=== PATIENT | female | born 1970 | race Caucasian/White ===

== ENCOUNTER 2025-05-25 16:09 | Inpatient (IN) | payer OTHER ==
[2025-05-25] MEDS ORDERED: METHYLPREDNISOLONE 125 MG INJ ONE (16:13)
[2025-05-25] MEDS ORDERED: ALBUTEROL 2.5 MG/3 ML NEB SOL ONE (16:13)
[2025-05-25] MEDS ORDERED: IPRATROPIUM BROM 0.5MG/2.5ML ONE (16:13)
[2025-05-25 16:35] LABS: Absolute Lymphocytes (CBC) 3.1 K/uL (0.7-4.9); Hematocrit 43.6 % (36.0-45.0); Hemoglobin 14.3 g/dL (12.0-15.0); MCH 30.1 pg (27.0-35.0); MCHC 32.9 g/dL (32.0-36.0); MCV 91.6 fL (80-100); MPV 7.8 fL (7.6-11.3); Nucleated RBC Absolute Count 0.0 (0-0); Nucleated Red Blood Cells % 0.1 % (0-0); RBC Red Blood Cell Count 4.76 M/uL (3.86-4.86); White Blood Count 14.00 thou/uL (4.3-10.9)
[2025-05-25 16:45] LABS: PT Prothrombin Time 13.1 SECONDS (10-13.0); PTT, Activated Partial Thromb 35.1 SECONDS (27.2-37.4); Protime INR 1.16
[2025-05-25 16:50] LABS: Influenza A Ag Negative; Influenza B Ag Negative; SARS-CoV-2 Antigen Rapid Res Negative (Negative)
[2025-05-25 17:13] LABS: ALT/SGPT 23.0 U/L (13-56); AST/SGOT 20.0 U/L (15-37); Albumin 3.7 g/dL (3.4-5.0); Albumin/Globulin Ratio 0.8 (1.1-1.8); Alkaline Phosphatase 105.0 U/L (45-117); Anion Gap 11.6 mEq/L (5.0-15.0); BUN Blood Urea Nitrogen 13.0 mg/dL (7-18); Globulin 4.7 g/dL (2.3-3.5); Glucose Level 138.0 mg/dL (74-106); NT PRO-BNP 42.0 pg/mL (<125); Potassium 3.6 mEq/L (3.5-5.1); Troponin High Sensitivity 26.2 pg/mL (<58.9)
[2025-05-25] MEDS ORDERED: Magnesium Sulfate 2gm IVPB 2 G/50 ML BAG IV ONE (17:24)
[2025-05-25] MEDS ORDERED: LEVALBUTEROL 1.25 MG/3 ML NEB ONE (17:24)
--- NOTE | 2025-05-25 18:06 | RAD REPORT ---
EXAMINATION: TWO VIEW CHEST XR CLINICAL INDICATION: Female, 55 years old. [facility] MAIN DYSPNEA Bed: TECHNIQUE: 2 view radiographs of the chest were performed. COMPARISON: No prior exam. FINDINGS: The lungs are well inflated and clear. Superimposition of soft tissues along the lower chest. No pneu mothorax or sizable effusion. The heart is normal in size. Mediastinal contours are unremarkable. IMPRESSION: No acute or significant abnormalities.
--- NOTE | 2025-05-25 18:15 | ER ---
Nurse's Notes [facility] Name: Alayna Cartwright Age: 55 yrs Sex: Female : 1970 Arrival Date: 05/25/2025 Time: 16:09 Bed 15 Private MD: Diagnosis: Unspecified asthma with (acute) exacerbation;Hypoxemia Presentation: 05/25 16:14 Chief complaint: Patient states: SOB X 2 weeks , has been on doxycycline for sinus iw infection, hx of asthma. Coronavirus screen: Client presents with at least one sign or symptom that may indicate coronavirus-19. Risk Assessment: Do you want to hurt yourself or someone else? Patient reports no desire to harm self or others. 16:14 Method Of Arrival: Ambulatory iw 16:14 Acuity: BRAD 2 iw 16:14 Ebola Screen: No symptoms or risks identified at this time. Initial Sepsis Screen: Does iw the patient meet any 2 criteria? RR > 20 per min. HR > 90 bpm. Does the patient have a suspected source of infection?. Onset of symptoms was May 11, 2025. Historical: - Allergies: 16:19 Aspirin; iw - PMHx: 16:19 Diabetes mellitus; Asthma; Anxiety; Depressive disorder; Bipolar disorder; iw - Immunization history:: Adult Immunizations not up to date. - Infectious Disease History:: Denies. - Social history:: Smoking status: Patient reports the use of cigarette tobacco products, denies chronic smoking, but will smoke occasionally. Screenin:31 [facility] ED Fall Risk Assessment (Adult) History of falling in the last 3 months, af3 including since admission No falls in past 3 months (0 pts) Confusion or Disorientation No (0 pts) Intoxicated or Sedated No (0 pts) Impaired Gait No (0 pts) Mobility Assist Device Used No (0 pt) Altered Elimination No (0 pt) Score/Fall Risk Level 0 - 2 = Low Risk Oriented to surroundings, Maintained a safe environment, Educated pt \T\ family on fall prevention, incl call for assistance when getting out of bed. Abuse screen: Denies threats or abuse. Denies injuries from another. Nutritional screening: No deficits noted. Tuberculosis screening: No symptoms or risk factors identified. Assessment: 16:31 General: Appears distressed, uncomfortable, well groomed, well developed, Behavior is af3 cooperative, appropriate for age. Pain: Complains of pain in chest. Neuro: Level of Consciousness is awake, alert, obeys commands, Oriented to person, place, time, situation, Appropriate for age. Cardiovascular: Patient's skin is warm and dry. Rhythm is sinus rhythm. Respiratory: Airway is patent Respiratory effort is labored, Respiratory pattern is regular, tachypnea. 17:19 Reassessment: Patient appears in no apparent distress at this time. Patient and/or af3 family updated on plan of care and expected duration. Pain level reassessed. 18:00 General: Appears in no apparent distress. Behavior is calm, cooperative, appropriate rg5 for age. Respiratory: Respiratory: Airway is patent Respiratory effort is even, Breath sounds with crackles bilaterally. 18:15 Reassessment: No changes from previously documented assessment. Patient and/or family rg5 updated on plan of care and expected duration. Pain level reassessed. Patient is alert, oriented x 3, equal unlabored respirations, skin warm/dry/pink. 19:10 Reassessment: Patient and/or family updated on plan of care and expected duration. Pain rg5 level reassessed. Patient is alert, oriented x 3, equal unlabored respirations, skin warm/dry/pink. 20:04 Reassessment: No changes from previously documented assessment. Patient and/or family rg5 updated on plan of care and expected duration. Pain level reassessed. Patient is alert, oriented x 3, equal unlabored respirations, skin warm/dry/pink. Vital Signs: 16:14 BP 136 / 72; Pulse 95; Resp 20; Temp 97; Pulse Ox 85% on R/A; Weight 82.1 kg; Height 5 iw ft. 2 in. ; 17:19 BP 131 / 65; Pulse 98; Resp 24; Pulse Ox 92% on 4 lpm NC; af3 18:35 BP 149 / 114; Pulse 91; Resp 19; Pulse Ox 94% on 3 lpm NC; rg5 19:00 BP 139 / 82; Pulse 104; Resp 19; Pulse Ox 94% on 3 lpm NC; rg5 20:03 BP 137 / 67; Pulse 111; Resp 20; Pulse Ox 95% on 3 lpm NC; Pain 0/10; rg5 21:08 BP 110 / 53; Pulse 92; Resp 18; Pulse Ox 95% ; rg5 16:14 Body Mass Index 33.10 (82.10 kg, 157.48 cm) iw 20:03 Pain Scale: Adult rg5 ED Course: 16:11 Patient arrived in ED. im 16:11 Deneen Gregorio PA-C is PHCP. sb4 16:11 Manuel James DO is Attending Physician. sb4 16:15 Triage completed. iw 16:20 Arm band placed on. iw 16:28 Candelaria Flores, RN is Primary Nurse. af3 16:29 COVID-19 Ag + Flu A+B Ag Sent. af3 16:30 Client placed on continuous cardiac and pulse oximetry monitoring. NIBP monitoring ap3 applied. residential monitor on. Pulse ox on. NIBP on. 16:30 EKG done, by ED staff, reviewed by Deneen Gregorio PA-C. ap3 17:08 Chest Pa And Lat (2 Views) XRAY In Process Unspecified. EDMS 18:00 Patient has correct armband on for positive identification. Bed in low position. Call rg5 light in reach. Side rails up X 1. Door closed. Noise minimized. Warm blanket given. 18:15 Javier Srinivasan, ELANA is Hospitalizing Provider. sb4 20:04 No provider procedures requiring assistance completed. Patient admitted, IV remains in rg5 place. intact, No redness/swelling at site. Administered Medications: 16:27 Drug: DuoNeb Nebulize (3:1) (2.5 mg - 0.5 mg) 3 ml Nebulizer once Route: Nebulizer; iw 17:33 Follow up: Response: No adverse reaction af3 16:27 Drug: MethylPrednisoLONE IVP 125 mg IVP once Route: IVP; Site: right antecubital; iw 17:33 Follow up: Response: No adverse reaction af3 17:33 Drug: Magnesium Sulfate IVPB 2 grams IVPB once over 20 mins Route: IVPB; Infused Over: af3 20 mins; Site: right antecubital; 18:39 Follow up: IV Status: Completed infusion; IV Intake: 100ml rg5 17:33 Drug: Levalbuterol Inhalation 1.25 mg Inhalation once Route: Inhalation; af3 18:39 Drug: Acetaminophen PO 650 mg PO once Route: PO; rg5 19:12 Follow up: Response: No adverse reaction; Pain is decreased rg5 Medication: 16:31 VIS not applicable for this client. af3 Intake: 18:39 IV: 100ml; Total: 100ml. rg5 Outcome: 18:15 Decision to Hospitalize by Provider. sb4 20:06 Admitted to ER Hold. Please see [facility] for further documentation. rg5 20:06 Condition: stable rg5 20:06 Instructed on the need for admit, 22:11 Patient left the ED. rg5 Signatures: Dispatcher [employer] EDMS Narda Castillo, ELANA RN iw Jenniffer Márquez RN RN ny3 Deneen Gregorio, PA-C PA-C sb4 Dona Fonseca Rommel, RN RN rg5 Candelaria Flores RN RN af3 Corrections: (The following items were deleted from the chart) 16:19 16:14 BP 136 / 72; Pulse 95bpm; Resp 20bpm; Pulse Ox 85% RA; iw iw
--- NOTE | 2025-05-25 18:15 | EDPHYS ---
Physician Documentation [facility] Name: Alayna Cartwright Age: 55 yrs Sex: Female : 1970 Arrival Date: 05/25/2025 Time: 16:09 Bed 15 Private MD: ED Physician Manuel James HPI: 05/25 16:19 This 55 yrs old Female presents to ER via Ambulatory with complaints of Shortness Of sb4 Breath, Asthma Exacerbation. 16:19 Patient reports cough and congestion for about 2 weeks now. She states she is becoming sb4 increasingly more short of breath. She was seen by prescribed doxycycline about 4 days ago but it is not helping. She was not prescribed any steroids or inhalers. Does report a history of asthma. Historical: - Allergies: 16:19 Aspirin; iw - PMHx: 16:19 Diabetes mellitus; Asthma; Anxiety; Depressive disorder; Bipolar disorder; iw - Immunization history:: Adult Immunizations not up to date. - Infectious Disease History:: Denies. - Social history:: Smoking status: Patient reports the use of cigarette tobacco products, denies chronic smoking, but will smoke occasionally. ROS: 16:19 Constitutional: Negative for fever, chills, and weight loss, sb4 16:19 Respiratory: Positive for cough, shortness of breath, 16:19 All other systems are negative, Exam: 16:19 Head/Face: Normocephalic, atraumatic. Eyes: Extra-ocular motions intact. Periorbital sb4 areas with no swelling, redness, or edema. ENT: Mucous membranes moist. Cardiovascular: Regular rate and rhythm with a normal S1 and S2. Abdomen/GI: Soft, non-tender, no distension. Skin: Warm, dry with normal turgor. Normal color with no rashes, no lesions, and no evidence of cellulitis. 16:19 Constitutional: The patient appears alert, awake, in obvious distress, uncomfortable, 16:19 Respiratory: mild respiratory distress is noted, Respirations: labored breathing, tachypnea, Breath sounds: wheezing: that is moderate, is scattered, Vital Signs: 16:14 BP 136 / 72; Pulse 95; Resp 20; Temp 97; Pulse Ox 85% on R/A; Weight 82.1 kg; Height 5 iw ft. 2 in. ; 17:19 BP 131 / 65; Pulse 98; Resp 24; Pulse Ox 92% on 4 lpm NC; af3 18:35 BP 149 / 114; Pulse 91; Resp 19; Pulse Ox 94% on 3 lpm NC; rg5 19:00 BP 139 / 82; Pulse 104; Resp 19; Pulse Ox 94% on 3 lpm NC; rg5 20:03 BP 137 / 67; Pulse 111; Resp 20; Pulse Ox 95% on 3 lpm NC; Pain 0/10; rg5 21:08 BP 110 / 53; Pulse 92; Resp 18; Pulse Ox 95% ; rg5 16:14 Body Mass Index 33.10 (82.10 kg, 157.48 cm) iw 20:03 Pain Scale: Adult rg5 MDM: 16:12 Medical Screening Exam initiated sb4 16:20 Differential diagnosis: asthma, Bronchitis Chronic Obstructive Pulmonary Disease sb4 pneumonia. 18:19 Antibiotic administration: Not indicated, the patient's primary pathology is reactive sb4 airway disease. Data interpreted: Pulse oximetry: on 4L(s) per nasal canula, is 92 %. Interpretation: acceptable, Plan: O2 by Mask applied. Data reviewed: vital signs, nurses notes, lab test result(s), EKG, radiologic studies, and as a result, I will admit patient. Consideration of Admission/Observation Patient was admitted/placed on observation. Care significantly affected by the following chronic conditions: Diabetes. Counseling: I had a detailed discussion with the patient and/or guardian regarding the historical points, exam findings, and any diagnostic results supporting the discharge/admit diagnosis, lab results, radiology results, the need for further work-up and treatment in the hospital. 05/25 16:15 Order name: COVID-19 Ag + Flu A+B Ag; Complete Time: 16:51 sb4 05/25 16:15 Order name: BNP; Complete Time: 17:14 sb4 05/25 16:15 Order name: Blood Culture Adult (2) sb4 05/25 16:15 Order name: CBC with Diff; Complete Time: 16:42 sb4 05/25 16:15 Order name: CMP; Complete Time: 17:14 sb4 05/25 16:15 Order name: Lactate w/ 2H reflex if indic.; Complete Time: 16:59 sb4 05/25 16:15 Order name: Protime (+inr); Complete Time: 16:45 sb4 05/25 16:15 Order name: Ptt, Activated; Complete Time: 16:45 sb4 05/25 16:15 Order name: Troponin HS; Complete Time: 17:14 sb4 05/25 16:47 Order name: Glucose, Ancillary Testing; Complete Time: 16:50 EDMS 05/25 20:02 Order name: CBC with Automated Diff EDMS 05/25 20:02 Order name: CBC with Automated Diff EDMS 05/25 20:02 Order name: CBC with Automated Diff EDMS 05/25 20:02 Order name: CBC with Automated Diff EDMS 05/25 20:02 Order name: Comprehensive Metabolic Panel EDMS 05/25 20:02 Order name: Comprehensive Metabolic Panel EDMS 05/25 20:02 Order name: Comprehensive Metabolic Panel EDMS 05/25 20:02 Order name: Comprehensive Metabolic Panel EDMS 05/25 20:02 Order name: Magnesium EDMS 05/25 20:02 Order name: Magnesium EDMS 05/25 20:02 Order name: Magnesium EDMS 05/25 20:02 Order name: Magnesium EDMS 05/25 20:02 Order name: Phosphorus EDMS 05/25 20:02 Order name: Phosphorus EDMS 05/25 20:02 Order name: Phosphorus EDMS 05/25 20:02 Order name: Phosphorus EDMS 05/25 20:08 Order name: Hemoglobin A1c EDMS 05/25 16:15 Order name: Chest Pa And Lat (2 Views) XRAY; Complete Time: 18:08 sb4 05/25 16:15 Order name: Accucheck; Complete Time: 16:37 sb4 05/25 16:15 Order name: Cardiac monitoring; Complete Time: 16:29 sb4 05/25 16:15 Order name: EKG - Nurse/Tech; Complete Time: 16:29 sb4 05/25 16:15 Order name: IV Saline Lock - Large Bore; Complete Time: 16:29 sb4 05/25 16:15 Order name: Labs collected and sent; Complete Time: 16:29 sb4 05/25 16:15 Order name: O2 Per Protocol; Complete Time: 16:29 sb4 05/25 16:15 Order name: O2 Sat Monitoring; Complete Time: 16:29 sb4 05/25 16:15 Order name: Vital Signs; Complete Time: 16:26 sb4 EC:30 Rate is 80 beats/min. Rhythm is regular, Normal Sinus Rhythm. MA interval is normal at sb4 138 msec. QRS interval is normal at 76 msec. QT interval is normal at 402 msec. Clinical impression: No evidence of ischemia. Interpreted by me. Reviewed by me. Administered Medications: 16:27 Drug: DuoNeb Nebulize (3:1) (2.5 mg - 0.5 mg) 3 ml Nebulizer once Route: Nebulizer; iw 17:33 Follow up: Response: No adverse reaction af3 16:27 Drug: MethylPrednisoLONE IVP 125 mg IVP once Route: IVP; Site: right antecubital; iw 17:33 Follow up: Response: No adverse reaction af3 17:33 Drug: Magnesium Sulfate IVPB 2 grams IVPB once over 20 mins Route: IVPB; Infused Over: af3 20 mins; Site: right antecubital; 18:39 Follow up: IV Status: Completed infusion; IV Intake: 100ml rg5 17:33 Drug: Levalbuterol Inhalation 1.25 mg Inhalation once Route: Inhalation; af3 18:39 Drug: Acetaminophen PO 650 mg PO once Route: PO; rg5 19:12 Follow up: Response: No adverse reaction; Pain is decreased rg5 Disposition: 16:46 I was immediately available on-site in the Emergency Department for consultation in the ms3 care of the patient. Disposition Summary: 05/25/25 18:15 Hospitalization Ordered Notes: Hospitalization Status: Inpatient Admission sb4 Provider: Javier Srinivasan [facility] sb4 Condition: Fair sb4 Problem: an acute exacerbation sb4 Symptoms: have improved sb4 Bed/Room Type: Standard sb4 Room Assignment: 230(05/25/25 20:53) cg Diagnosis - Unspecified asthma with (acute) exacerbation sb4 - Hypoxemia sb4 Forms: - Medication Reconciliation Form sb4 - SBAR form sb4 - Leadership Thank You Letter sb4 Signatures: Dispatcher [employer] Narda Wilhelm RN RN iw Garcia, Cindy, RN RN Manuel James DO DO ms3 Deneen Gregorio PA-C PA-C sb4 Vikram Sneed RN RN rg5 Candelaria Flores RN RN af3 Corrections: (The following items were deleted from the chart) 16:16 16:16 PROBNP+C.LAB.BRZ ordered. EDMS EDMS 16:16 16:16 BLOOD CULTURE*+BA.LAB.BRZ ordered. EDMS EDMS 16:16 16:16 CBC+H.LAB.BRZ ordered. EDMS EDMS 16:16 16:16 COMPREHENSIVE METABOLIC PANEL+C.LAB.BRZ ordered. EDMS EDMS 16:16 16:16 LACTATE+C.LAB.BRZ ordered. EDMS EDMS 16:16 16:16 PROTIME (+INR)+COAG.LAB.BRZ ordered. EDMS EDMS 16:16 16:16 PTT, ACTIVATED+COAG.LAB.BRZ ordered. EDMS EDMS 16:16 16:16 Troponin High Sensitivity+C.LAB.BRZ ordered. EDMS EDMS 20:53 18:15 sb4 cg
[2025-05-25] MEDS ORDERED: ACETAMINOPHEN 325 MG TABLET ONE (18:37)
[2025-05-25] MEDS ORDERED: ONDANSETRON 4 MG/2 ML VIAL IV PRN (19:56)
[2025-05-25] MEDS: INSULIN REGULAR (HUMAN) 100 UNIT/ML SQ SCH (22:55)
[2025-05-25] MEDS: IPRATROPIUM BROM 0.5MG/2.5ML NEB PRN (23:05)
[2025-05-25] MEDS: ALBUTEROL 2.5 MG/3 ML NEB SOL NEB PRN (23:05)
[2025-05-25] MEDS: ACETAMINOPHEN 325 MG TABLET PO PRN (23:56)
[2025-05-26] MEDS: hydrOXYzine HCL 25 MG TAB PO ONE (01:35)
[2025-05-26] MEDS: TRAZODONE 50 MG TABLET PO ONE (01:35)
--- NOTE | 2025-05-26 03:39 | P.HP ---
Certification for Inpatient Patient admitted to: Inpatient With expected LOS: >2 Midnights Patient will require the following post-hospital care: None Practitioner: I am a practitioner with admitting privileges, knowledge of patient current condition, hospital course, and medical plan of care. Services: Services provided to patient in accordance with Admission requirements found in Title 42 Section 412.3 of the Code of Federal Regulations Patient History Date of Service: 05/25/25 Reason for admission: Acute asthma exacerbation with hypoxia. History of Present Illness: Patient is a 55-year-old female with past medical history of type 2 diabetes mellitus, asthma, anxiety, depressive disorder, bipolar disorder, who presents to ER complaining of worsening shortness of breath with associated expiratory and expiratory wheezing. Patient states 2 weeks ago she developed cold, states she went to see her PCP, was prescribed antibiotics but no steroid was prescribed for her, states she took the entie antibiotics as prescribed with no relief of her symptoms. Patient states when she woke up today she was in severe respiratory distress, expiratory and expiratory wheezing, states she took her nebulizer treatment and use of her home oxygen still with no relief, states her symptoms progressively worsening which then prompted her to report to ER. Upon patient arrival into ER, she was in severe respiratory distress, received multiple doses of nebulizer treatment including magnesium sulfate 2 g, Solu- Medrol 125 mg. During admission assessment, assessed patient lungs with profound pulmonary congestion with expiratory wheezing bilateral with associated crackles and rhonchi. Patient placed on oxygen 4 L. Patient denies of any chest pain, headaches, nausea or vomiting, blurred vision, abdominal pain at this time. Course in ER. Chest x-ray. Impression: No acute or significant abnormalities. Allergies aspirin Allergy (Verified 05/25/25 22:43) Shortness of breath Home Medications: Benoit Carbonate [Benoit Carbonate ER] 300 mg PO BID 05/25/25 Lurasidone HCl [Latuda] 40 mg PO BEDTIME 05/25/25 Trazodone [Desyrel*] 50 mg PO BEDTIME 05/25/25 hydrOXYzine HCL [Atarax*] 25 mg PO BID 05/25/25 - Past Medical/Surgical History Has patient received pneumonia vaccine in the past: Yes -: Type 2 diabetes mellitus. -: Asthma. -: Depressive disorder. -: Bipolar disorder. -: Tubal ligation. -: . - Family History Family History: Reviewed- Non-Contributory - Social History Smoking Status: Current every day smoker Smoking therapy provided: Yes Patient receptive to therapy: Yes (Order nicotine patch.) Alcohol use: Yes CD- Drugs: No Caffeine use: Yes Place of Residence: Home Review of Systems 10-point ROS is otherwise unremarkable Respiratory: Cough, Shortness of Breath, SOB with Excertion, Wheezing (Bilateral inspiratory, and expiratory.) Physical Examination - Vital Signs Temperature: 97.0 F Blood Pressure: 131/61 Pulse: 99 Respirations: 16 Pulse Ox (%): 92 - Physical Exam General: In no apparent distress, Oriented x3, Cooperative HEENT: Atraumatic, Normocephalic, PERRLA, Mucous membr. moist/pink, Sclerae nonicteric Neck: Supple, 2+ carotid pulse no bruit, JVD not distended, No Thyromegaly, No LAD Respiratory: Expiratory wheezes, Inspiratory wheezes, Other (Bilateral pulmonary congestion with crackles and rhonchi, and poor aeration.) Cardiovascular: No edema, Normal pulses, Regular rate/rhythm, Normal S1 S2, No gallops, No rubs, Systolic murmur Gastrointestinal: Normal bowel sounds, Soft and benign, Non-distended, W/out hepatomegaly, No ascites, No tenderness, No masses, No rebound, No guarding Musculoskeletal: No clubbing, No swelling, No erythema, No tenderness, No warmth Integumentary: No rashes, No breakdown, No significant lesion, No tenderness/swelling, No erythema, No warmth, No cyanosis Neurological: Normal gait, Normal speech, Normal tone, Sensation intact, Normal reflexes 2+, Normal affect, Other (Generalized body weakness) Lymphatics: No axilla or inguinal lymphadenopathy - Studies Laboratory Data (last 24 hrs) 05/25/25 05/25/25 05/25/25 16:23 16:23 16:23 WBC 14.00 H Hgb 14.3 Hct 43.6 Plt Count 443 H PT 13.1 H INR 1.16 APTT 35.1 Sodium 137 Potassium 3.6 BUN 13 Creatinine 1.03 H Glucose 138 H Total Bilirubin 0.3 AST 20 ALT 23 Alkaline Phosphatase 105 Female Exam - Breasts Breasts: Normal configuration, Normal contours, Symmetrical Assessment and Plan - Plan Patient is a 55-year-old female who reports to ER complaining of worsening shortness of breath with associated expiratory and expiratory wheezing. Patient admitted inpatient with diagnosis of asthma exacerbation with hypoxia. (1)Asthma exacerbation with hypoxia. -DuoNeb Q6 as as needed. -Brovana 1 5 mcg twice daily. -Levaquin 750 mg p.o. daily. -Budesonide 0.5 mg nebulizer twice daily. -Prednisone 40 mg p.o. daily. -Oxygen supplement titrated to maintain O2 saturation above 90%. -Consult windows security analyst Dr. Stroud. (2) chronic type 2 diabetes mellitus. -Order A1c to evaluate patient current diabetic status. -ACHS moderate sliding scale. -Home medications to be resumed when reconciled. (3) DVT prophylaxis. -Lovenox 40 mg subcu daily. (4)Explained the entire treatment plan to the patient, solicited questions answered and voiced understanding. Discharge Plan: Home Plan to discharge in: Greater than 2 days - Advance Directives Does patient have a Living Will: No Does patient have a Durable POA for Healthcare: No - Code Status/Comfort Care Code Status Assessed: Yes Code Status: Full Code Critical Care: No Time Spent Managing Pts Care (In Minutes): 55
[2025-05-26 04:30] VITALS: BMI 33.0
[2025-05-26 06:14] LABS: Absolute Lymphocytes (CBC) 0.9 K/uL (0.7-4.9); Hematocrit 38.5 % (36.0-45.0); Hemoglobin 12.5 g/dL (12.0-15.0); MCH 29.8 pg (27.0-35.0); MCHC 32.3 g/dL (32.0-36.0); MCV 92.2 fL (80-100); MPV 8.7 fL (7.6-11.3); Nucleated RBC Absolute Count 0.0 (0-0); Nucleated Red Blood Cells % 0.1 % (0-0); RBC Red Blood Cell Count 4.18 M/uL (3.86-4.86); White Blood Count 14.30 thou/uL (4.3-10.9)
[2025-05-26 06:17] LABS: ALT/SGPT 21.0 U/L (13-56); AST/SGOT 17.0 U/L (15-37); Albumin 3.0 g/dL (3.4-5.0); Albumin/Globulin Ratio 0.7 (1.1-1.8); Alkaline Phosphatase 96.0 U/L (45-117); Anion Gap 9.6 mEq/L (5.0-15.0); BUN Blood Urea Nitrogen 17.0 mg/dL (7-18); Globulin 4.3 g/dL (2.3-3.5); Glucose Level 284.0 mg/dL (74-106); Magnesium 2.5 mg/dL (1.6-2.4); Potassium 4.6 mEq/L (3.5-5.1)
[2025-05-26] MEDS: ARFORMOTEROL TARTRATE 15 MCG/2 ML VIAL.NEB NEB SCH (07:55)
[2025-05-26] MEDS: BUDESONIDE 0.5 MG/2 ML NEB NEB SCH (07:55)
--- NOTE | 2025-05-26 08:37 | P.CNS ---
Date of Consult: 05/26/25 Reason for Consult: COPD exacerbation Chief Complaint: Shortness of breath cough congestion History of Present Illness: Patient is 55 years of age active smoker was former heavy smoker history of significant marijuana abuse he is in rehab right now has been sick for the past 2 weeks complaining of cough congestion worsening shortness of breath was seen in outpatient clinic prescribed doxycycline did not improve ended up here in the hospital no prior history of COPD although she was diagnosed with asthma a long time ago does not use any scheduled bronchodilators Allergies aspirin Allergy (Verified 05/25/25 22:43) Shortness of breath Home Medications: Pace Carbonate [Pace Carbonate ER] 300 mg PO BID 05/25/25 Lurasidone HCl [Latuda] 40 mg PO BEDTIME 05/25/25 Trazodone [Desyrel*] 50 mg PO BEDTIME 05/25/25 hydrOXYzine HCL [Atarax*] 25 mg PO BID 05/25/25 - Past Medical/Surgical History -: Type 2 diabetes mellitus. -: Asthma. -: Depressive disorder. -: Bipolar disorder. -: Tubal ligation. -: . - Social History Smoking Status: Current some day smoker Alcohol use: Yes CD- Drugs: No Caffeine use: Yes Place of Residence: Home Review of Systems 10-point ROS is otherwise unremarkable General: Weakness Respiratory: Cough, Shortness of Breath Physical Examination Temp Pulse Resp BP Pulse Ox 98.7 F 88 18 109/55 L 94 05/26/25 04:00 05/26/25 04:00 05/26/25 04:00 05/26/25 04:00 05/26/25 04:00 General: Alert, Oriented x3 Respiratory: Expiratory wheezes Cardiovascular: No edema, Regular rate/rhythm, Normal S1 S2 Gastrointestinal: Normal bowel sounds, Soft and benign Laboratory Data (last 24 hrs) 05/25/25 05/25/25 05/25/25 16:23 16:23 16:23 WBC 14.00 H Hgb 14.3 Hct 43.6 Plt Count 443 H PT 13.1 H INR 1.16 APTT 35.1 Sodium 137 Potassium 3.6 BUN 13 Creatinine 1.03 H Glucose 138 H Total Bilirubin 0.3 AST 20 ALT 23 Alkaline Phosphatase 105 - Problems (1) COPD exacerbation Current Visit: Yes Status: Acute Plan: Patient is 55 years of age with new diagnosis of COPD possible underlying exacerbation discharge patient on levofloxacin 500 mg daily for 5 days she is already being treated with doxycycline add some prednisone 20 mg twice a day for a week also need a long-acting bronchodilator I prescribed her Dulera follow-up with me in 2 weeks her chest x-ray is clear lab work reviewed white count is mildly elevated
[2025-05-26] MEDS: hydrOXYzine HCL 25 MG TAB PO SCH (08:46)
[2025-05-26] MEDS: NICOTINE 21 MG/PAT TD SCH (08:47)
[2025-05-26] MEDS: predniSONE 20 MG TAB PO SCH (08:47)
[2025-05-26 09:02] LABS: Differential Total Cells Count 100; Segmented Neutrophils 86 % (40-80)
[2025-05-26] MEDS: ENOXAPARIN 40 MG/0.4 ML SQ SCH (09:03)
[2025-05-26] MEDS: LITHIUM CARBONATE 300 MG CAP PO SCH (09:03)
[2025-05-26 09:06] LABS: Blood Morphology Comment NOT SEEN (NOT SEEN)
[2025-05-26] MEDS: DULERA 200/5 (MOMETASONE/FORMOTEROL) INHALER IH SCH (09:46)
--- NOTE | 2025-05-26 17:53 | P.PN ---
Date of Service: 05/26/25 Patient seen and examined. She reports significant improvement in her shortness of breath She is currently on 3 L of oxygen by nasal cannula and saturating at 97%. Pulmonary Dr. Cardozo input appreciated. Continue bronchodilator Chest physiotherapy Wean off oxygen. Empiric oral Levaquin.
[2025-05-26] MEDS: Lurasidone Hcl [Latuda] 40 MG Tablet PO SCH (19:50)
[2025-05-26] MEDS ORDERED: TRAZODONE 50 MG TABLET PO SCH (21:00)
[2025-05-26] MEDS: guaiFENesin 100 MG/5 ML UCUP PO PRN (23:02)
[2025-05-27 06:31] LABS: Absolute Lymphocytes (CBC) 2.6 K/uL (0.7-4.9); Hematocrit 36.3 % (36.0-45.0); Hemoglobin 12.3 g/dL (12.0-15.0); MCH 30.7 pg (27.0-35.0); MCHC 33.8 g/dL (32.0-36.0); MCV 90.6 fL (80-100); MPV 7.9 fL (7.6-11.3); Nucleated RBC Absolute Count 0.0 (0-0); Nucleated Red Blood Cells % 0.1 % (0-0); RBC Red Blood Cell Count 4.00 M/uL (3.86-4.86); White Blood Count 17.20 thou/uL (4.3-10.9)
[2025-05-27 06:49] LABS: ALT/SGPT 20.0 U/L (13-56); AST/SGOT 11.0 U/L (15-37); Albumin 3.0 g/dL (3.4-5.0); Albumin/Globulin Ratio 0.8 (1.1-1.8); Alkaline Phosphatase 80.0 U/L (45-117); Anion Gap 7.9 mEq/L (5.0-15.0); BUN Blood Urea Nitrogen 19.0 mg/dL (7-18); Globulin 3.9 g/dL (2.3-3.5); Glucose Level 147.0 mg/dL (74-106); Magnesium 2.2 mg/dL (1.6-2.4); Potassium 3.9 mEq/L (3.5-5.1)
[2025-05-27] MEDS: HYDROCODONE/APAP 5/325 MG TAB PO ONE (09:06)
[2025-05-27 09:34] VITALS: O2SAT 97
--- NOTE | 2025-05-27 14:03 | P.DS ---
Admission Date: 05/25/25 Discharge Date: 05/27/25 Reason for Admission: Shortness of breath cough congestion Hospital Course: Diagnosis COPD exacerbation Acute respiratory failure with hypoxia Tobacco use 55-year-old woman with past medical history of type 2 diabetes mellitus, asthma, anxiety, depressive disorder, bipolar disorder, presented to the ER complaining of worsening shortness of breath with associated expiratory and expiratory wheezing. She saw her PCP 2 weeks ago because of cold symptoms and was prescribed doxycycline however patient's symptoms got worse followed by episodes of wheezing and shortness of breath. Patient found to be in respiratory distress in the ED, she received multiple doses of nebulizer treatment including magnesium sulfate 2 g, Solu-Medrol 125 mg. Chest x-ray did not show any acute disease. Patient was requiring 4 L of oxygen by nasal cannula. She was admitted to the medical floor and treated with scheduled bronchodilators which included Brovana, ipratropium, also placed on oral prednisone and oral Levaquin. She was seen in consultation by pulmonary Dr. Stroud who prescribed her Dulera. Patient was patient condition improved with treatment, she was weaned off of oxygen to room air which she tolerated at rest and with ambulation. Overall clinical condition improved, patient is discharged with oral Levaquin, oral prednisone, Dulera, and albuterol rescue inhaler. Patient advised to follow-up with form tamping machine operator Dr. Stroud in the office within a couple of weeks. Vital Signs/Physical Exam: Temp Pulse Resp BP Pulse Ox 97.9 F 73 18 121/62 92 05/27/25 12:00 05/27/25 12:00 05/27/25 12:00 05/27/25 12:00 05/27/25 12:00 General: Alert, In no apparent distress, Oriented x3 HEENT: Mucous membr. moist/pink, Sclerae nonicteric Neck: Supple, JVD not distended Respiratory: Normal air movement, Other (Mild scattered wheezes, upper airway transmitted sounds) Cardiovascular: No edema, Regular rate/rhythm, Normal S1 S2, No murmurs Gastrointestinal: Normal bowel sounds, Soft and benign, Non-distended, No tenderness Musculoskeletal: No swelling Integumentary: No rashes, No cyanosis Neurological: Normal speech, Normal strength at 5/5 x4 extr, Cranial nerves 3-12 intact Laboratory Data at Discharge: WBC 17.20 thou/uL (4.3-10.9) H 05/27/25 05:55 Hgb 12.3 g/dL (12.0-15.0) 05/27/25 05:55 Hct 36.3 % (36.0-45.0) 05/27/25 05:55 Plt Count 414 thou/uL (152-406) H 05/27/25 05:55 PT 13.1 SECONDS (10-13.0) H 05/25/25 16:23 INR 1.16 05/25/25 16:23 APTT 35.1 SECONDS (27.2-37.4) 05/25/25 16:23 Sodium 139 mEq/L (136-145) 05/27/25 05:55 Potassium 3.9 mEq/L (3.5-5.1) D 05/27/25 05:55 BUN 19 mg/dL (7-18) H 05/27/25 05:55 Creatinine 0.70 mg/dL (0.55-1.02) 05/27/25 05:55 Glucose 147 mg/dL (74-106) H 05/27/25 05:55 Phosphorus 4.3 mg/dL (2.5-4.9) 05/27/25 05:55 Magnesium 2.2 mg/dL (1.6-2.4) 05/27/25 05:55 Total Bilirubin 0.2 mg/dL (0.2-1.0) 05/27/25 05:55 AST 11 U/L (15-37) L 05/27/25 05:55 ALT 20 U/L (13-56) 05/27/25 05:55 Alkaline Phosphatase 80 U/L (45-117) 05/27/25 05:55 Home Medications: [place] Carbonate [[place] Carbonate ER] 300 mg PO BID 05/25/25 Lurasidone HCl [Latuda] 40 mg PO BEDTIME 05/25/25 Trazodone [Desyrel*] 50 mg PO BEDTIME 05/25/25 hydrOXYzine HCL [Atarax*] 25 mg PO BID 05/25/25 Albuterol Sulfate [Albuterol Sulfate Hfa] 1 puff IH QID PRN #1 ea 05/27/25 Guaifenesin/Dextromethorphan [Siltussin Dm 100 mg-10 mg/5 ml] 5 ml PO QID PRN #237 ml 05/27/25 Mometasone/Formoterol [Dulera 200 Mcg/5 Mcg Inhaler] 2 puff IH BID #1 inhaler 05/27/25 levoFLOXacin [Levaquin*] 750 mg PO DAILY #5 tab 05/27/25 predniSONE [Prednisone*] 20 mg PO BID #14 tab 05/27/25 New Medications: Albuterol Sulfate [Albuterol Sulfate Hfa] 1 puff IH QID PRN #1 ea PRN Reason: Wheezing Mometasone/Formoterol [Dulera 200 Mcg/5 Mcg Inhaler] 2 puff IH BID #1 inhaler levoFLOXacin [Levaquin*] 750 mg PO DAILY #5 tab predniSONE [Prednisone*] 20 mg PO BID #14 tab Guaifenesin/Dextromethorphan [Siltussin Dm 100 mg-10 mg/5 ml] 5 ml PO QID PRN #237 ml PRN Reason: Cough Physician Discharge Instructions: 55-year-old woman with past medical history of type 2 diabetes mellitus, asthma, anxiety, depressive disorder, bipolar disorder, presented to the ER complaining of worsening shortness of breath with associated expiratory and expiratory wheezing. She saw her PCP 2 weeks ago because of cold symptoms and was prescribed doxycycline however patient's symptoms got worse followed by episodes of wheezing and shortness of breath. Patient found to be in respiratory distress in the ED, she received multiple doses of nebulizer treatment including magnesium sulfate 2 g, Solu-Medrol 125 mg. Chest x-ray did not show any acute disease. Patient was requiring 4 L of oxygen by nasal cannula. She was admitted to the medical floor and treated with scheduled bronchodilators which included Brovana, ipratropium, also placed on oral prednisone and oral Levaquin. She was seen in consultation by pulmonary Dr. Stroud who prescribed her Dulera. Patient was patient condition improved with treatment, she was weaned off of oxygen to room air which she tolerated at rest and with ambulation. Overall clinical condition improved, patient is discharged with oral Levaquin, oral prednisone, Dulera, and albuterol rescue inhaler. Patient advised to follow-up with form tamping machine operator Dr. Stroud in the office within a couple of weeks. Diet: AHA Activity: Ad daly Followup: OOT,OOT [Primary Care Provider] - 1-2 Weeks Alfonso Stroud MD [ACTIVE - CAN ADMIT] - (Within 2 weeks) Time spent managing pt's care (in minutes): 37
[2025-05-27] MEDS ORDERED: ALBUTEROL 2.5 MG/3 ML NEB SOL NEB PRN (15:28)
[2025-05-27 17:10] VITALS: BP 127/71; TEMP 97.7
== END 2025-05-27 17:29 | disposition home or self-care (01) | DRG 189 ==
LOC: ER 16:09 → ERHOLD 19:54 → 2ND 21:18
PROVIDERS: ADMIT Internal Medicine; ATTEND Internal Medicine
DX: J96.01 Acute respiratory failure with hypoxia (principal); J45.901 Unspecified asthma with (acute) exacerbation; J44.1 Chronic obstructive pulmonary disease with (acute) exacerbation; F31.9 Bipolar disorder, unspecified; E11.9 Type 2 diabetes mellitus without complications; F17.210 Nicotine dependence, cigarettes, uncomplicated; Z79.82 Long term (current) use of aspirin; Z11.52 Encounter for screening for COVID-19; Z79.899 Other long term (current) drug therapy
CPT/HCPCS: 36415; 71046; 80053; 82947; 83036; 83605; 83735; 83880; 84100; 84484; 85025; 85610; 85730; 87040; 87428; 93005; 94010; 94640; 96365; 96375; 99285; G0238; J1650; J1815; J2919; J3475; J3535; J7512; J7605; J7613; J7614; J7626; J7644